=== PATIENT | male | born 1950 ===

== ENCOUNTER 2024-06-14 05:33 | Day surgery (SDC) | payer OTHER ==
[2024-06-11 11:22] LABS: HEMATOCRIT 37.2 % (39.0-48.0); HEMOGLOBIN 12.3 g/dL (13-16.00); MEAN CELL VOLUME 90.1 fL (80.0-100.00); MEAN CORPUSCULAR HEMOGLOBIN 29.8 pg (27.00-32.0); MEAN CORPUSCULAR HGB CONC 33.1 g/dl (32.0-36.0); PLATELET COUNT 366 K/uL (150-450); RED BLOOD COUNT 4.13 M/uL (4.00-6.00)
[2024-06-11 11:55] LABS: PH,URINE 6.5 (5.0-8.0); URINE APPEARANCE Clear; URINE BILIRRUBIN Negative (NEGATIVE); URINE BLOOD Negative; URINE COLOR Yellow; URINE GLUCOSE Negative (NEGATIVE); URINE KETONE Trace (NEGATIVE); URINE LEUKOCYTE Trace; URINE NITRATE Positive; URINE PROTEIN Negative (NEGATIVE); URINE UROBILINOGEN 0.2 E.U./dl
[2024-06-11 11:59] LABS: URINE EPITHELIAL CELLS 2.9 uL (0.0-38.8); URINE WBC 21.7 uL (0.0-23.2)
[2024-06-11 12:08] LABS: URINE BACTERIA > 9821.5 uL (0.0-1933)
[2024-06-11 12:13] LABS: ALBUMIN 3.7 gm/dL (3.4-5.0); CALCIUM 9.5 mg/dL (8.5-10.1); CREATININE SERUM 0.84 mg/dL (0.70-1.30); GFR 89.32; PHOSPHOROUS 3.3 mg/dL (2.5-4.9); POTASSIUM 4.36 mEq/L (3.5-5.1)
[2024-06-11 12:25] LABS: PARTIAL THROMBOPLASTIN TIME 25.5 SECONDS (22.0-34.0); PROTHROMBIN TIME 10.5 SECONDS (9.0-11.5)
[2024-06-14] MEDS ORDERED: DIBUCAINE 30 GM TUBE ONE (07:14)
[2024-06-14] MEDS ORDERED: POVIDONE-IODINE 118 ML BOTT TOP ONE (07:14)
[2024-06-14] MEDS ORDERED: LIDOCAINE HCL 1%/EPINEPHRINE 20ML VIAL IJ ONE (07:14)
[2024-06-14] MEDS ORDERED: BUPIVACAINE HCL/MPF 0.5% 30ML VIAL ONE (07:14)
[2024-06-14] MEDS ORDERED: HEMOSTATIC MATRIX 1 KIT KIT TOP ONE (07:14)
[2024-06-14] MEDS ORDERED: METRONIDAZOLE/SODIUM CHLORIDE 500 MG/100 ML PIGGYBACK IV ONE (07:34)
[2024-06-14] MEDS ORDERED: CEFTRIAXONE SODIUM 2,000 MG VIAL ONE (07:34)
[2024-06-14] MEDS ORDERED: NEURONTIN300 MG PO (08:30)
[2024-06-14] MEDS ORDERED: ACETAMINOPHEN500 M2 PO (08:30)
== END 2024-06-14 13:00 | disposition home or self-care (01) ==
LOC: CIR.AMB 05:33
PROVIDERS: ATTEND Surgery
DX: C20 Malignant neoplasm of rectum (principal); K62.5 Hemorrhage of anus and rectum; R59.0 Localized enlarged lymph nodes; D12.8 Benign neoplasm of rectum; F41.9 Anxiety disorder, unspecified

== ENCOUNTER → 2024-07-05 | Day surgery (SDC) | payer OTHER ==
[~2024-07-05] MED LIST: ACETAMINOPHEN500 M2 PO; BUPIVACAINE HCL/Mpf 0.5% 10ML VIAL ONE; CEFAZOLIN SODIUM 1,000 MG VIAL ONE; HEPARIN SODIUM,PORCINE 500 UNITS/5 ML VIAL IV ONE; LIDOCAINE HCL 1%/EPINEPHRINE 20ML VIAL IJ ONE; LIPITOR20 MG PO; NEURONTIN300 MG PO; TRAM1TAB98 PO
== END | disposition home or self-care (01) ==
LOC: ADM 07-02 09:45 → CIR.AMB 07:57
PROVIDERS: ATTEND Surgery
DX: C20 Malignant neoplasm of rectum (principal)
CPT/HCPCS: 36561; C1751